=== PATIENT | female | born 1995 | race African-American/Black ===

== ENCOUNTER 2024-01-22 10:34 | Emergency (ER) | payer MEDICAID, OTHER ==
[~2024-01-22] VITALS: Ht 165.1 cm; Wt 75.0 kg
[2024-01-22 10:36] VITALS: O2SAT 99
[2024-01-22] MEDS: KETOROLAC 30MG/ML VIAL IV STA (11:10)
[2024-01-22] MEDS: ONDANSETRON HCL 4MG/2ML INJ IV STA (11:10)
[2024-01-22] MEDS: MORPHINE SULFATE 4 MG/ML INJ (FOR IV/IM USE) IV STA (11:10)
[2024-01-22 11:11] VITALS: TEMP 99
[2024-01-22] MEDS: SODIUM CHLORIDE 0.9% 1,000 ML IV ONE (11:11)
[2024-01-22 11:49] LABS: CHLORIDE 107 mEq/L (98-107); POTASSIUM 3.4 mEq/L (3.5-5.1); SODIUM 137 mEq/L (136-145)
[2024-01-22 11:50] LABS: CARBON DIOXIDE 24 mEq/L (21-32)
[2024-01-22 11:51] LABS: PROTHROMBIN TIME 10.9 sec (9.6-11.0)
[2024-01-22 11:55] LABS: CREATININE 0.7 mg/dL (0.6-1.0); GLUCOSE 119 mg/dL (70-105); UREA NITROGEN BLOOD 9 mg/dL (9-23)
[2024-01-22 11:59] LABS: HCG SCREEN NEGATIVE
[2024-01-22 12:06] LABS: BASOPHILS % 0.5 % (0.0-2.0); HEMATOCRIT. 39.3 % (36.0-48.0); HEMOGLOBIN. 12.7 g/dL (12.0-16.0); LYMPHOCYTES % 14.9 % (20.0-50.0); MEAN CORPUSCULAR HEMOGLOBIN 26.8 pg (28.0-32.0); MEAN CORPUSCULAR HGB CONC 32.4 g/dL (31.0-37.0); MEAN CORPUSCULAR VOLUME 82.6 fL (81.0-99.0); MEAN PLATELET VOLUME 8.2 fl (7.4-10.4); MONOCYTES % 8.4 % (2.0-8.0); NEUTROPHILS % 75.2 % (40.0-76.0); RED BLOOD CELL COUNT 4.75 mill/uL (4.2-5.4); RED CELL DISTRIBUTION WIDTH 13.6 % (11.6-14.6); WHITE BLOOD COUNT 7.2 x1000/uL (4.5-11.0)
[2024-01-22 13:08] VITALS: BP 2/74; PULSE 94; RESP 16
[2024-01-22] MEDS: KETOROLAC 30MG/ML VIAL IV ONE (13:08)
[2024-01-22 13:24] LABS: DIFFERENTIAL COMMENT 1
[2024-01-22 13:26] LABS: PLATELET 244 x1000/uL (130-400)
[2024-01-22] MEDS ORDERED: IBUP-2030 MT (14:15)
== END 2024-01-22 14:12 | disposition home or self-care (01) ==
LOC: ER 12:10
DX: R10.9 Unspecified abdominal pain (principal); R11.0 Nausea
CPT/HCPCS: 80048; 84703; 83690; 85025; 85610; 36415; 74176; 96374; 96375; 96376; 99285; J1885; J2405; J2270; J7030; Z7610

== ENCOUNTER 2024-05-03 14:24 | Emergency (ER) | payer MEDICAID ==
[~2024-05-03] VITALS: Ht 167.6 cm; Wt 90.0 kg
[~2024-05-03 14:24] MED LIST: IBUP-2030 MT
[2024-05-03 14:28] VITALS: BP 126/86; PULSE 79; RESP 18; TEMP 98; O2SAT 98
== END 2024-05-03 18:46 | disposition left against medical advice (07) ==
LOC: ER 14:36
DX: R10.9 Unspecified abdominal pain (principal); Z53.21 Procedure and treatment not carried out due to patient leaving prior to being seen by health care provider